=== PATIENT | male | born 1965 | race Asian ===

== ENCOUNTER 2019-09-09 10:25 | Emergency (ER) | payer OTHER ==
[~2019-09-09] VITALS: Ht 157.5 cm; Wt 65.9 kg
[2019-09-09 12:53] VITALS: BP 121/80
== END 2019-09-09 13:16 | disposition home or self-care (01) ==
LOC: EMS 10:29
DX: S01.301A Unspecified open wound of right ear, initial encounter (principal); L98.491 Non-pressure chronic ulcer of skin of other sites limited to breakdown of skin; X58.XXXA Exposure to other specified factors, initial encounter; Y93.89 Activity, other specified; Y92.89 Other specified places as the place of occurrence of the external cause; Y99.8 Other external cause status